=== PATIENT | female | born 1945 | race Caucasian/White ===

== ENCOUNTER 2021-06-08 09:45 | Inpatient (IN) | payer MEDICARE ==
[~2021-06-08] VITALS: Ht 162.6 cm; Wt 77.8 kg
[~2021-06-08 09:45] MED LIST: AIRDUO RESPICL1 EAC1; ALBU90OI INH; AMLO10 PO; CALCIUM CIT 311 EAC7 PO; CEPH250A PO; FLUT1DIS2 INH; GENTEAL TEARS S10 GM BOTHEYES; KETO15TC TOP; MERIBIN5 MG PO; MULVITA PO; VITAMIN D310 MC4 PO
[2021-06-08] MEDS ORDERED: ACET500 (10:08)
[2021-06-08] MEDS ORDERED: CLOBET30L TOP (10:14)
[2021-06-09 04:51] LABS: BASOPHILS ABSOLUTE AUTO 0.01 K/mm3 (0.00-0.23); BASOPHILS PERCENT AUTO 0 % (0-2); EOSINOPHILS PERCENT AUTO 0 % (0-6); Hematocrit 36.3 % (33.0-51.0); Hemoglobin 11.5 g/dL (11.5-16.0); IMMATURE GRAN ABSOLUTE AUTO 0.06 K/mm3 (0.00-0.10); IMMATURE GRAN PERCENT AUTO 0 % (0-1); LYMPHOCYTES ABSOLUTE AUTO 0.43 K/mm3 (0.84-5.20); LYMPHOCYTES PERCENT AUTO 3 % (21-46); MONOCYTES ABSOLUTE AUTO 1.02 K/mm3 (0.16-1.47); MONOCYTES PERCENT AUTO 7 % (4-13); Mean Corpuscular HGB 29.3 pg (26.0-34.0); Mean Corpuscular HGB Conc 31.7 g/dL (31.5-36.5); Mean Corpuscular Volume 93 fL (80-100); Mean Platelet Volume 8.9 fL (9.1-12.4); NEUTROPHILS ABSOLUTE AUTO 12.22 K/mm3 (1.96-9.15); NEUTROPHILS PERCENT AUTO 89 % (41-73); Platelet Count 313 K/mm3 (150-400); RDW Coefficient Variation 13.6 % (11.7-14.2); Red Blood Cell Count 3.92 M/mm3 (3.80-5.20); White Blood Cell Count 13.74 K/mm3 (4.00-11.30)
[2021-06-09 05:22] LABS: Anion Gap 6 mmol/L (6-16); Blood Urea Nitrogen 19 mg/dL (8-24); Bun/Creatinine Ratio 28.7 (12.0-20.0); CO2, Blood 30 mmol/L (21-32); Calcium, Blood 9.1 mg/dL (8.5-10.1); Chloride, Blood 104 mmol/L (98-108); Creatinine, Blood 0.66 mg/dL (0.40-1.00); Glomerular Filtration Rate >60 (60-); Glucose, Blood 181 mg/dL (70-99); Potassium, Blood 4.7 mmol/L (3.5-5.5); Sodium, Blood 140 mmol/L (136-145)
--- NOTE | 2021-06-09 06:17 | NUR ---
POD 1 S/P LEFT TSA. PT VSS T/O NIGHT, HR NOTED 47 THIS AM, PT ASYMPTOMATIC. DRESSING CDI, IMMOBILIZER IN PLACE. PT CONT TO REP TINGLING TO LUE, PULSES AND CAP REFILL WNL. PT REP PAIN MINIMAL, MED W/SCHEDULED TYLENOL AND PRN OXYCODONE X1 W/REP RELIEF. PT VOIDING URINE W/O DIFFICULTY. PT CORDELIA REG PO, DID HAVE 1 EPISODE OF EMESIS THIS AM. PT UP OOB W/SBA, CORDELIA WELL.
--- NOTE | 2021-06-09 15:08 | NUR ---
DISCHARGE SUMMARY POD1 L TSA, A/O X4, VSS, TOLERATING PO, AMBULATING INDEPENDENTLY c 1 SBA, PAIN WELL MANAGED, VOIDING WELL. DISCUSSED DISCHARGE INFORMATION INCLUDING HOME CARE, MEDICATIONS, FOLLOW UPS, AND CONTACT INFORMATION FOR ANY FUTURE QUESTIONS. IV ACESS REMOVED, PT ESCORTED OUT WITH ALL PERSONAL POSSESSIONS VIA WC TO GO HOME VIA PRIVATE AUTO.
== END 2021-06-09 14:07 | disposition home or self-care (01) | DRG 483 ==
LOC: ORSCMMR 09:45 → ORD 11:00 → ORSCMMR 11:00 → SURS 12:29 → ORSCMMR 12:29 → ORD 14:00 → SURS 16:06
PROVIDERS: ADMIT Orthopaedic Surgery
PROC: 0RRK0JZ Replacement of Left Shoulder Joint with Synthetic Substitute, Open Approach (ICD-10-PCS; principal; 2021-06-08 11:00)
DX: M19.012 Primary osteoarthritis, left shoulder (principal); J44.9 Chronic obstructive pulmonary disease, unspecified; F32.A Depression, unspecified; I10 Essential (primary) hypertension; G47.00 Insomnia, unspecified; Z90.49 Acquired absence of other specified parts of digestive tract; Z90.89 Acquired absence of other organs; Z90.710 Acquired absence of both cervix and uterus; Z87.891 Personal history of nicotine dependence; Z88.1 Allergy status to other antibiotic agents; Z91.040 Latex allergy status; Z88.8 Allergy status to other drugs, medicaments and biological substances; Z79.82 Long term (current) use of aspirin; Z79.899 Other long term (current) drug therapy
CPT/HCPCS: 36415; 73030; 80048; 85025; 86850; 86900; 86901; 94640; 94664; 94760; 97110; 97161; 97165; 97535; A9270; C1776; J0171; J0690; J0735; J1100; J1885; J2250; J2370; J2405; J2704; J2795; J3010; J7120

== ENCOUNTER → 2021-12-29 | Outpatient (CLI) | payer MEDICARE ==
[~2021-12-29] MED LIST changes: +ACET500; +CLOBET30L TOP
[2022-01-03 15:08] LABS: M-SPIKE, % Not Observed % (Not Observed); PROTEIN,TOTAL,URINE 5.1 mg/dL (Not Estab.)
== END ==
LOC: LAB 05:24 → LAB SHORT 05:24
PROVIDERS: Physician Assistant
DX: G62.9 Polyneuropathy, unspecified (principal)
CPT/HCPCS: 81050; 84156; 84166

== ENCOUNTER → 2022-10-28 | Outpatient (CLI) | payer MEDICARE | LOC: LAB SHORT 11:14 → PLD 11:14 | DX: N84.1 Polyp of cervix uteri (principal) | CPT/HCPCS: 88305 ==

== ENCOUNTER → 2022-12-24 | Outpatient (CLI) | payer MEDICARE ==
[2022-12-24 09:43] LABS: BASOPHILS ABSOLUTE AUTO 0.06 K/mm3 (0.00-0.23); BASOPHILS PERCENT AUTO 1 % (0-2); EOSINOPHILS ABSOLUTE AUTO 0.03 K/mm3 (0.00-0.68); EOSINOPHILS PERCENT AUTO 0 % (0-6); Hematocrit 45.2 % (33.0-51.0); Hemoglobin 14.9 g/dL (11.5-16.0); IMMATURE GRAN ABSOLUTE AUTO 0.02 K/mm3 (0.00-0.10); IMMATURE GRAN PERCENT AUTO 0 % (0-1); LYMPHOCYTES ABSOLUTE AUTO 0.63 K/mm3 (0.84-5.20); LYMPHOCYTES PERCENT AUTO 8 % (21-46); MONOCYTES ABSOLUTE AUTO 0.83 K/mm3 (0.16-1.47); MONOCYTES PERCENT AUTO 10 % (4-13); Mean Corpuscular HGB 29.8 pg (26.0-34.0); Mean Corpuscular Volume 90 fL (80-100); Mean Platelet Volume 8.6 fL (9.1-12.4); NEUTROPHILS ABSOLUTE AUTO 6.58 K/mm3 (1.96-9.15); NEUTROPHILS PERCENT AUTO 81 % (41-73); Platelet Count 275 K/mm3 (150-400); RDW Coefficient Variation 13.2 % (11.7-14.2); RDW Standard Deviation 43.5 fL (35.1-46.3); White Blood Cell Count 8.15 K/mm3 (4.00-11.30)
[2022-12-24 09:56] LABS: Albumin, Blood 3.9 g/dL (3.4-5.0); Albumin/Globulin Ratio 1.1 (0.8-1.8); Bilirubin, Total 0.9 mg/dL (0.1-1.0); Bun/Creatinine Ratio 12.9 (12.0-20.0); Calcium, Blood 9.2 mg/dL (8.5-10.1); Creatinine, Blood 0.93 mg/dL (0.40-1.00); Globulin, Blood 3.7 g/dL (2.2-4.0); Potassium, Blood 4.3 mmol/L (3.5-5.5); Total Protein, Blood 7.6 g/dL (6.4-8.2)
== END | disposition home or self-care (01) ==
LOC: LAB SHORT 09:39 → LAB 09:39
PROVIDERS: Physician Assistant Medical
DX: R50.9 Fever, unspecified (principal)
CPT/HCPCS: 80053; 85025

== ENCOUNTER 2023-01-31 09:18 | Day surgery (SDC) | payer MEDICARE ==
[~2023-01-31] VITALS: Ht 162.6 cm; Wt 85.2 kg
[2023-01-31] MEDS ORDERED: BREZTRI AEROS10.7 GM (10:04)
[2023-01-31 13:09] VITALS: BP 163/95
--- NOTE | 2023-01-31 13:09 | NUR ---
01/31/23 1309 AMY PONCE IV REMOVED CATHETER INTACT [facility]DL
== END 2023-01-31 11:46 | disposition home or self-care (01) ==
LOC: ORSCSDS 09:18
PROVIDERS: Internal Medicine Gastroenterology
PROC: 0DBL8ZX Excision of Transverse Colon, Via Natural or Artificial Opening Endoscopic, Diagnostic (ICD-10-PCS; principal; 2023-01-31 10:30)
PROC: 0DBP8ZX Excision of Rectum, Via Natural or Artificial Opening Endoscopic, Diagnostic (ICD-10-PCS; principal; 2023-01-31 10:30)
DX: K59.09 Other constipation (principal); Z86.010 Personal history of colon polyps; D12.3 Benign neoplasm of transverse colon; K62.1 Rectal polyp; K57.30 Diverticulosis of large intestine without perforation or abscess without bleeding; K64.8 Other hemorrhoids; I10 Essential (primary) hypertension; E78.5 Hyperlipidemia, unspecified; R73.03 Prediabetes; J45.909 Unspecified asthma, uncomplicated; G62.9 Polyneuropathy, unspecified; Z79.899 Other long term (current) drug therapy; Z87.891 Personal history of nicotine dependence
CPT/HCPCS: 82947; 88305; J2704; J7120

== ENCOUNTER → 2023-02-27 | Outpatient (CLI) | payer MEDICARE ==
[~2023-02-27] MED LIST changes: +BREZTRI AEROS10.7 GM
== END | disposition home or self-care (01) ==
LOC: LAB SHORT 15:22 → LAB 15:22
DX: N39.0 Urinary tract infection, site not specified (principal)
CPT/HCPCS: 87077; 87086; 87186